=== PATIENT | female | born 1995 | race Caucasian/White ===

== ENCOUNTER 2018-05-16 15:40 | Emergency (ER) | payer OTHER ==
[2018-05-16 16:14] VITALS: BP 110/60
--- NOTE | 2018-05-16 17:14 | UC ---
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 Pt went to [facility] yesterday, told was viral. Pt continues with sore throat, fever, fatigue. mild nausea, no vomiting. no abdominal pain. Pt has been eating and drinking. No rash No headache, vision change Takeing APAP with fever reduction Pt concerned has strep Pt's medications reviewed this visit - History of Current Complaint Chief Complaint: UCRespiratory Stated Complaint: NASAL CONGESTION, SORE THROAT Time Seen by Provider: 05/16/18 16:57 Hx Obtained From: Patient Hx Last Menstrual Period: [id number] ?: No Onset/Duration: Gradual Onset Pain Intensity: 4 - Allergies/Home Medications Allergies/Adverse Reactions: Allergies Allergy/AdvReac Type Severity Reaction Status Date / Time No Known Allergies Allergy Verified 05/16/18 16:15 Home Medications: Home Medications Guaifenesin/Pseudoephedrne HCl [Mucinex D ER Tablet] 1 each PO Q12H 05/16/18 [ History Confirmed 05/16/18] Ibuprofen TAB* [Motrin TAB* 400 MG] 400 mg PO Q6H PRN 05/16/18 [History Confirmed 05/16/18] Norethindrone-E.estradiol-Iron [Junel Fe 24 1-20 mg-Mcg(24)] 1 tab PO DAILY 01/26 [History Confirmed 05/16/18] PMH/Surg Hx/FS Hx/Imm Hx Previously Healthy: Yes - Surgical History Surgical History: Yes Surgery Procedure, Year, and Place: acl repair - Family History Known Family History: Positive: Other - non contributory - Social History Alcohol Use: Weekly Substance Use Type: None Smoking Status (MU): Never Smoked Tobacco Review of Systems Constitutional: Fever ENT: Sore Throat, Sinus Congestion Gastrointestinal: Nausea All Other Systems Reviewed And Are Negative: Yes Physical Exam - Summary Physical Exam Summary: Vital Signs Reviewed: Yes A+Ox3, no distress Eyes: Conjunctiva Clear, ARLEN. EOM intact and full ENT: Hearing grossly normal TM x 2 clear, turbinates inflammed and boggy, + PND , + tonsillar enlargement, erythema, mmoist, uvula midline, no exudate, uvula midline Neck: Positive: Supple + submandibular LA R>L Respiratory: Positive: No respiratory distress, No accessory muscle use + CTA throughout no w/r Cardiovascular: RRR nl s1, s2 no m/r CBT <2 sec abd soft + BS nt/nd no guarding, no distension Musculoskeletal Exam: YOUNG x 4 without difficulty Strength Intact, ROM Intact Neurological: Positive: Alert, + sensation throughout Psychological: Positive: Normal Response To Family Skin: Positive: no rash, no ecchymosis Triage Information Reviewed: Yes Vital Signs: Initial Vital Signs Temp 98.7 F 05/16/18 16:09 Pulse 86 05/16/18 16:09 Resp 16 05/16/18 16:09 BP 110/60 05/16/18 16:09 Pulse Ox 100 05/16/18 16:09 Throat Pain/Nasal Course/Dx - Course Course Of Treatment: Pt with progressive sore throat x 48 hours with fever, and [place]. Strep exposure. strep neg at . pt adamantly refusing blood draw for mono - abd soft, no splenomegaly on exam. recommend hydrate. secretion precautions. motrin/apap. pred taper, return precaution. 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 Take with food. Do NOT take for more than 4-5 days - Okay to gargle and spit every 4 hours as needed for pain - Stay well hydrated - frequent sips of cold fluids will be soothing to your throat (popsicles, jello, ice cream, ice water). Avoid excess caffeine until your symptoms have resolved. - Do not share eating, drinking utensils. Throw out your toothbrush when your symptoms resolved -Throat infections are spread by oral secretions - do not share eating or drinking utensils until you symptoms are resolved. Clean items that may get your secretions such as cell phones, ipads, computer mouse, television remotes Your throat sample has been sent for additional testing. These results will take 2-3 days to come back. If you need antibiotics, a care support team assoc will contact you - Take prednisone as prescribed until gone -it is recommended you continue with Mucinex and nasonex - Contact the health center on campus or return with questions or cncerns - Billing Disposition and Condition Condition: STABLE Disposition: Home
== END 2018-05-16 17:45 | disposition home or self-care (01) ==
LOC: UCEAST 15:40
DX: J02.9 Acute pharyngitis, unspecified (principal)
CPT/HCPCS: 87070; 87651; 99212; G0463

== ENCOUNTER 2018-10-04 11:39 | Emergency (ER) | payer OTHER ==
[2018-10-04 11:57] VITALS: BP 110/78
--- NOTE | 2018-10-04 12:26 | UC ---
Eye Complaint HPI - HPI Summary HPI Summary: got white min on lower R eye lid yesterday, this am awoke and saw bigger "pimple". however white spot resolved after shower, still a little red min, no drainage or vision changes - History of Current Complaint Chief Complaint: UCEye Stated Complaint: WHITE DOT ON RIGHT EYE Hx Obtained From: Patient Hx Last Menstrual Period: 09/09/18 ?: No Onset/Duration: Gradual Onset Timing: Constant Severity Initially: Mild Pain Intensity: 0 Location of Injury: Eye Lid (lower) Aggravating Factor(s): Blinking Associated Signs And Symptoms: Positive: Negative - Allergies/Home Medications Allergies/Adverse Reactions: Allergies Allergy/AdvReac Type Severity Reaction Status Date / Time No Known Allergies Allergy Verified 10/04/18 11:57 PMH/Surg Hx/FS Hx/Imm Hx Previously Healthy: Yes - Surgical History Surgical History: Yes Surgery Procedure, Year, and Place: acl repair - Family History Known Family History: Positive: Other - non contributory - Social History Occupation: Student Lives: With Family Alcohol Use: Weekly Alcohol Amount: once a week Substance Use Type: None Smoking Status (MU): Never Smoked Tobacco Review of Systems All Other Systems Reviewed And Are Negative: Yes Constitutional: Positive: Negative Skin: Positive: Negative Eyes: Positive: Other - bump on lower lid (R) ENT: Positive: Negative Respiratory: Positive: Negative Cardiovascular: Positive: Negative Neurological: Positive: Negative. Negative: Headache Psychological: Positive: Negative Physical Exam Triage Information Reviewed: Yes Appearance: Well-Appearing, No Pain Distress, Well-Nourished Vital Signs: Initial Vital Signs Temp 97.9 F 10/04/18 11:53 Pulse 73 10/04/18 11:53 Resp 16 10/04/18 11:53 BP 110/78 10/04/18 11:53 Pulse Ox 99 10/04/18 11:53 Vital Signs Reviewed: Yes Eyes: Positive: Conjunctiva Clear, Other: - pinpoint red spot lower R lid, no pustule. Negative: Discharge ENT Exam: Normal Respiratory Exam: Normal Cardiovascular Exam: Normal Psychological Exam: Normal Skin Exam: Normal Eye Complaint Course/Dx - Differential Dx/Diagnosis Differential Diagnosis/HQI/PQRI: Conjunctivitis, Corneal Abrasion, Other - stye Provider Diagnosis: Hordeolum externum (stye) Discharge - Sign-Out/Discharge Documenting (check all that apply): Patient Departure All imaging exams completed and their final reports reviewed: No Studies - Discharge Plan Condition: Good Disposition: HOME Patient Education Materials: Brian (ED) Referrals: Elaine Drake MD [Primary Care Provider] - 2 Days (if no better) Additional Instructions: apply warm moist packs to eye 3-4 times a day until resolved. return here or to [facility] if problem worsens - Billing Disposition and Condition Condition: GOOD Disposition: Home - Attestation Statements Provider Attestation: I was available for consult. This patient was seen by the SHANTA. The patient was not presented to , seen by or examined by -Edda Dallas MD
== END 2018-10-04 12:30 | disposition home or self-care (01) ==
LOC: UCEAST 11:39
DX: H00.012 Hordeolum externum right lower eyelid (principal)
CPT/HCPCS: 99211; G0463